=== PATIENT | male | born 1985 | race Hispanic/Latino ===

== ENCOUNTER 2021-06-13 12:58 | Inpatient (IN) | payer BC ==
[~2021-06-13] VITALS: Ht 177.8 cm; Wt 120.2 kg
[2021-06-13 13:36] LABS: BASOPHILS % 0.3 % (0.0-1.0); EOSINOPHILS # (AUTO) 0.1 (0.0-0.4); EOSINOPHILS % 0.8 % (0.0-6.0); HEMATOCRIT 49.3 % (38.2-49.6); HEMOGLOBIN 16.5 g/dL (14.0-18.0); LYMPHOCYTES # (AUTO) 2.5 (1.0-3.2); LYMPHOCYTES % 17.1 % (18.0-39.1); MEAN CORPUSCULAR HGB CONC 33.5 g/dL (31-35); MEAN CORPUSCULAR VOLUME 95.7 fL (81-99); MONOCYTES # (AUTO) 1.5 (0.2-0.8); NEUTROPHILS # (AUTO) 10.5 (2.1-6.9); NEUTROPHILS % 70.5 % (38.7-80.0); PLATELET COUNT 259 x10e3/uL (140-360); RED BLOOD COUNT 5.15 x10e6/uL (4.3-5.7); RED CELL DISTRIBUTION WIDTH 12.9 % (11.7-14.4)
[2021-06-13 13:58] LABS: ALBUMIN 2.7 g/dL (3.5-5.0); ALBUMIN/GLOBULIN RATIO 0.6 (0.8-2.0); ANION GAP 14.6 mmol/L (8-16); CALCIUM 9.1 mg/dL (8.4-10.2); CREATININE, SERUM 0.79 mg/dL (0.72-1.25); POTASSIUM 3.6 mmol/L (3.5-5.1)
[2021-06-13] MEDS ORDERED: ACETAMINOPHEN 325 MG TAB PO NR (14:00)
[2021-06-13 14:04] LABS: CREATINE KINASE MB 0.4 ng/mL (0-5.0)
[2021-06-13 14:33] LABS: AMPHETAMINES SCREEN,URINE NEGATIVE (NEGATIVE); BENZODIAZEPINES SCREEN,URINE NEGATIVE (NEGATIVE); PHENCYCLIDINE SCREEN,URINE NEGATIVE (NEGATIVE)
[2021-06-13] MEDS ORDERED: REMDESIVIR 100MG 200 MG in SODIUM CHLORIDE 0.9% 100 ML IV ONE (16:00)
[2021-06-13 16:19] VITALS: BP 129/97
[2021-06-13] MEDS ORDERED: SODIUM CHLORIDE 0.9% 250ML 250 ML ONE (17:10)
[2021-06-13] MEDS: DEXAMETHASONE SOD PHOS 10 MG/1 ML VIAL IV SCH (17:11)
[2021-06-13] MEDS: ASCORBIC ACID 500 MG TAB PO SCH (17:11)
[2021-06-13] MEDS: CEFTRIAXONE 2 GM in SODIUM CHLORIDE 0.9% 100 ML IV SCH (17:11)
[2021-06-13] MEDS: ENOXAPARIN SOD INJ 40 MG/0.4 ML SYR SC SCH (17:12)
[2021-06-13] MEDS ORDERED: IOPAMIDOL 370 MG/ML 200 ML INFUS..BTL INJ ONE (18:39)
[2021-06-13] MEDS ORDERED: SODIUM CHLORIDE 0.9% 50ML 50 ML ONE (18:39)
[2021-06-13 19:17] VITALS: BP 129/97
[2021-06-13 20:00] VITALS: BP 129/89
[2021-06-14] VITALS (8 sets, daily range): BP systolic 120–129; BP diastolic 64–98
[2021-06-14 05:48] LABS: BASOPHILS % 0.4 % (0.0-1.0); HEMATOCRIT 50.2 % (38.2-49.6); HEMOGLOBIN 16.6 g/dL (14.0-18.0); LYMPHOCYTES # (AUTO) 1.2 (1.0-3.2); LYMPHOCYTES % 12.4 % (18.0-39.1); MEAN CORPUSCULAR HEMOGLOBIN 31.7 pg (28-32); MEAN CORPUSCULAR HGB CONC 33.1 g/dL (31-35); MONOCYTES # (AUTO) 0.4 (0.2-0.8); MONOCYTES % 4.3 % (4.4-11.3); NEUTROPHILS # (AUTO) 7.9 (2.1-6.9); NEUTROPHILS % 80.3 % (38.7-80.0); PLATELET COUNT 242 x10e3/uL (140-360); RED BLOOD COUNT 5.23 x10e6/uL (4.3-5.7); RED CELL DISTRIBUTION WIDTH 12.6 % (11.7-14.4)
[2021-06-14 06:27] LABS: CREATINE KINASE MB 0.5 ng/mL (0-5.0)
[2021-06-14 06:55] LABS: ALBUMIN 2.6 g/dL (3.5-5.0); ALBUMIN/GLOBULIN RATIO 0.6 (0.8-2.0); ANION GAP 13.4 mmol/L (8-16); CALCIUM 9.8 mg/dL (8.4-10.2); CREATININE, SERUM 0.69 mg/dL (0.72-1.25); POTASSIUM 4.4 mmol/L (3.5-5.1)
[2021-06-14] MEDS: ZINC SULFATE 50 MG CAP PO SCH (09:00)
[2021-06-14] MEDS: ASCORBIC ACID 500 MG TAB PO SCH ×2 (09:00→16:32)
[2021-06-14] MEDS: DEXAMETHASONE SOD PHOS 10 MG/1 ML VIAL IV SCH (09:00)
[2021-06-14] MEDS: ENOXAPARIN SOD INJ 40 MG/0.4 ML SYR SC SCH ×2 (09:00→16:32)
[2021-06-14] MEDS: REMDESIVIR 100MG 100 MG in SODIUM CHLORIDE 0.9% 100 ML IV SCH (10:00)
[2021-06-14 14:46] LABS: CREATINE KINASE MB 0.7 ng/mL (0-5.0)
[2021-06-14] MEDS: CEFTRIAXONE 2 GM in SODIUM CHLORIDE 0.9% 100 ML IV SCH (16:32)
[2021-06-15] VITALS (7 sets, daily range): BP systolic 116–134; BP diastolic 58–99
[2021-06-15] MEDS: DEXAMETHASONE SOD PHOS 10 MG/1 ML VIAL IV SCH (09:00)
[2021-06-15] MEDS: ASCORBIC ACID 500 MG TAB PO SCH ×2 (09:00→16:31)
[2021-06-15] MEDS: ENOXAPARIN SOD INJ 40 MG/0.4 ML SYR SC SCH ×2 (09:00→16:31)
[2021-06-15] MEDS: ZINC SULFATE 50 MG CAP PO SCH (09:00)
[2021-06-15] MEDS: AZITHROMYCIN 250 MG TAB PO SCH (09:00)
[2021-06-15] MEDS: REMDESIVIR 100MG 100 MG in SODIUM CHLORIDE 0.9% 100 ML IV SCH (09:27)
[2021-06-15] MEDS ORDERED: SODIUM CHLORIDE 0.9% 100 ML ONE (16:02)
[2021-06-15] MEDS: CEFTRIAXONE 2 GM in SODIUM CHLORIDE 0.9% 100 ML IV SCH (16:31)
[2021-06-16] VITALS (9 sets, daily range): BP systolic 114–121; BP diastolic 80–88
[2021-06-16] MEDS: ASCORBIC ACID 500 MG TAB PO SCH ×2 (08:16→16:25)
[2021-06-16] MEDS: DEXAMETHASONE SOD PHOS 10 MG/1 ML VIAL IV SCH (08:16)
[2021-06-16] MEDS: AZITHROMYCIN 250 MG TAB PO SCH (08:16)
[2021-06-16] MEDS: ENOXAPARIN SOD INJ 40 MG/0.4 ML SYR SC SCH ×2 (08:16→16:25)
[2021-06-16] MEDS: ZINC SULFATE 50 MG CAP PO SCH (08:16)
[2021-06-16] MEDS: REMDESIVIR 100MG 100 MG in SODIUM CHLORIDE 0.9% 100 ML IV SCH (09:27)
[2021-06-17 00:02] VITALS: BP 132/89
[2021-06-17 03:56] VITALS: BP 130/97
[2021-06-17 08:38] VITALS: BP 125/88
[2021-06-17 09:00] VITALS: BP 125/88
[2021-06-17] MEDS: DEXAMETHASONE SOD PHOS 10 MG/1 ML VIAL IV SCH (09:23)
[2021-06-17] MEDS: ZINC SULFATE 50 MG CAP PO SCH (09:23)
[2021-06-17] MEDS: ASCORBIC ACID 500 MG TAB PO SCH (09:23)
[2021-06-17] MEDS: AZITHROMYCIN 250 MG TAB PO SCH (09:23)
[2021-06-17] MEDS: REMDESIVIR 100MG 100 MG in SODIUM CHLORIDE 0.9% 100 ML IV SCH (09:23)
[2021-06-17] MEDS: ENOXAPARIN SOD INJ 40 MG/0.4 ML SYR SC SCH (09:23)
[2021-06-17 12:25] VITALS: BP 131/93
[2021-06-17] MEDS ORDERED: DEXAMETHASONE4 MG PO (13:48)
== END 2021-06-17 14:44 | disposition home or self-care (01) | DRG 177 ==
LOC: ER 13:00 → ERHOLD 14:18 → MED/SURG2 16:13
PROVIDERS: ADMIT Internal Medicine; ATTEND Internal Medicine
PROC: 8E0ZXY6 Isolation (ICD-10-PCS; principal; 2021-06-13)
PROC: XW033E5 Introduction of Remdesivir Anti-infective into Peripheral Vein, Percutaneous Approach, New Technology Group 5 (ICD-10-PCS; 2021-06-13)
DX: U07.1 COVID-19 (principal); J12.82 Pneumonia due to coronavirus disease 2019; J96.01 Acute respiratory failure with hypoxia; E66.01 Morbid (severe) obesity due to excess calories; Z68.38 Body mass index [BMI] 38.0-38.9, adult
CPT/HCPCS: 36415; 71045; 71260; 80053; 80307; 82550; 82553; 83735; 84484; 85025; 87070; 87205; 93005; 94799; 99284; J0248; J0456; J0696; J1100; J1650; J7050; Q9967; U0002